=== PATIENT | male | born 1960 | race Caucasian/White ===

== ENCOUNTER 2018-12-14 19:27 | Emergency (ER) | payer MEDICARE ==
[2018-12-14 19:35] VITALS: BMI 25.0
[2018-12-14 19:44] VITALS: RESP 18; TEMP 97.9
[2018-12-14 20:17] LABS: ALB/GLOB RATIO 1.4 (1.1-1.8); ALT/SGPT 77 U/L (7-56); AST/SGOT 63 U/L (17-59); BLOOD UREA NITROGEN 14 mg/dL (7-21); CALCIUM 9.6 mg/dL (8.4-10.5); GFR NON-AFRICAN AMERICAN > 60
[2018-12-14 20:19] LABS: BASO # 0.03 K/mm3 (0.0-2.0); BASO % 0.3 % (0.0-3.0); EOS % 0.3 % (1.5-5.0); HEMOGLOBIN 14.1 g/dL (14.0-18.0); LYMPH # 6.7 (1.2-3.4); LYMPH % 56.3 % (22.0-35.0); MEAN CELL VOLUME 92.4 fl (80.0-105.0); MEAN CORPUSCULAR HEMOGLOBIN 31.4 pg (25.0-35.0); MONO # 0.7 (0.1-0.6); MONO % 6.2 % (1.0-6.0); PLATELET COUNT 99 10^3/uL (120.0-450.0); RBC 4.49 10^6/uL (3.5-6.1); RED CELL DISTRIBUTION WIDTH 13.4 % (11.5-14.5); WHITE BLOOD COUNT 11.9 10^3/uL (4.5-11.0)
[2018-12-14 20:27] LABS: TROPONIN I < 0.01 ng/mL
[2018-12-14 20:31] LABS: INR 1.11; PARTIAL THROMBOPLASTIN TIME 28.4 Seconds (26.9-38.3); PROTHROMBIN TIME 12.3 SECONDS (9.4-12.5)
--- NOTE | 2018-12-14 20:42 | ED PDOC ---
Arrival/HPI - General Chief Complaint: Syncope Time Seen by Provider: 12/14/18 19:35 Historian: Patient - History of Present Illness Narrative History of Present Illness (Text): 12/14/18 19:40 Donovan Greenwood is a 58 year old male, whose past medical history includes diabetes, who presents to the Emergency department complaining of a syncopal episode today. Patient states he had 1 alcoholic drink this evening and had a syncopal episode. Patient does not recall the event or remember how he fell. Patient sustained an abrasion to his left cheek. Patient denies any fever, chills, chest pain, shortness of breath, nausea, vomiting, diarrhea, urinary symptoms, back pain, neck pain, headache, dizziness, or any other complaints. Symptom Onset: Gradual Symptom Course: Unchanged Activities at Onset: Light Context: Home Past Medical History - Provider Review Nursing Documentation Reviewed: Yes - Cardiac Hx Cardiac Disorders: Yes (Patient Unable to remember during triage.) - Endocrine/Metabolic Hx Endocrine Disorders: Yes Hx Diabetes Mellitus Type 2: Yes - Psychiatric Hx Substance Use: No Family/Social History - Physician Review Nursing Documentation Reviewed: Yes Family/Social History: Unknown Family HX Smoking Status: Heavy Smoker > 10 Cigarettes Daily Hx Alcohol Use: Yes Frequency of alcohol use: Few days per week Hx Substance Use: No Allergies/Home Meds Allergies/Adverse Reactions: Allergies No Known Allergies Allergy (Verified 12/14/18 19:35) Review of Systems - Physician Review All systems were reviewed & negative as marked: Yes - Review of Systems Constitutional: Normal. absent: Fevers Eyes: Normal ENT: Normal Respiratory: Normal Cardiovascular: Syncope Gastrointestinal: Normal. absent: Abdominal Pain, Diarrhea, Nausea, Vomiting Genitourinary Male: Normal. absent: Dysuria, Frequency, Hematuria, Urinary Output Changes Musculoskeletal: Normal. absent: Back Pain, Neck Pain Skin: Normal. absent: Rash Neurological: Normal. absent: Headache, Dizziness Endocrine: Normal Hemo/Lymphatic: Normal Psychiatric: Normal Physical Exam Vital Signs Temp Pulse Resp BP Pulse Ox 12/14/18 19:35 97.9 F 84 18 141/85 98 Temperature: Afebrile Blood Pressure: Normal Pulse: Regular Respiratory Rate: Normal Appearance: Positive for: Well-Appearing, Non-Toxic, Comfortable Pain Distress: None Mental Status: Positive for: Alert and Oriented X 3 - Systems Exam Head: Present: Normocephalic, Abrasion (Abrasion to left cheek) Pupils: Present: PERRL Extroacular Muscles: Present: EOMI Conjunctiva: Present: Normal Mouth: Present: Moist Mucous Membranes Neck: Present: Normal Range of Motion Respiratory/Chest: Present: Clear to Auscultation, Good Air Exchange. No: Respiratory Distress, Accessory Muscle Use Cardiovascular: Present: Regular Rate and Rhythm, Normal S1, S2. No: Murmurs Abdomen: No: Tenderness, Distention, Peritoneal Signs Back: Present: Normal Inspection Upper Extremity: Present: Normal Inspection. No: Cyanosis, Edema Lower Extremity: Present: Normal Inspection. No: Edema Neurological: Present: GCS=15, CN II-XII Intact, Speech Normal Skin: Present: Warm, Dry, Normal Color. No: Rashes Psychiatric: Present: Alert, Oriented x 3, Normal Insight, Normal Concentration Medical Decision Making ED Course and Treatment: Impression: 58 year old male complaining of a syncopal episode. Pt sustained an abrasion to left cheek. Plan: -- CT Head w/o contrast -- CT Maxillofacial w/o contrast -- EKG -- Chest X-ray -- Labs, cardiac enzymes, TSH, alcohol level, D-dimer, blood cultures -- Urinalysis, urine drug screen, urine cultures -- Tylenol -- Reassess and disposition Prior Visits: Notes and results from previous visits were reviewed. Progress Notes: Reviewed EKG, NSR at [address]pm[address] Non-specific ST/T wave changes. 12/14/18 22:05 Reviewed radiology, Chest X-ray shows no acute processes. CT Head: BRAIN No acute intraparenchymal hemorrhage. No mass lesion. No CT evidence for acute territorial infarct. No midline shift or extra-axial collections. A large zone of decreased attenuation is seen in the left temporal lobe thought compatible with post ischemic infarction encephalomalacia. An old lacunar infarction is seen in the anterior left periventricular white matter tracts. VENTRICLES: There is slight asymmetrical hypertrophy of the left lateral ventricle for the left temporal cortical atrophy. VASCULAR: Atherosclerotic vascular plaquing is noted within the left carotid siphon. ORBITS: The orbits are unremarkable. SINUSES AND MASTOIDS: The paranasal sinuses and mastoid air cells are clear. BONES: No fracture. SOFT TISSUES: Unremarkable. IMPRESSION: 1. No acute intracranial abnormality. 2. 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 3. Compensatory hypertrophy of the left lateral ventricle. 4. Old lacunar infarction in the anterior left periventricular white matter tracts. 5. Atherosclerotic vascular plaquing within the left carotid siphon. Electronically signed on Dec 14, 2018 9:57:50 PM EST by: Robert Phillips M.D., LILI Certified By ABR & [facility] Fellowship Trained MRI and CT Specialist 12/14/18 22:18:03 CT Maxillofacial: BONES: No acute fracture or aggressive appearing osseous lesion. The mandible is intact. SOFT TISSUES: The soft tissues are unremarkable. SINUSES: Bilateral ethmoid and maxillary acute on chronic sinusitis is seen ORBITS: The orbits are normal. No retrobulbar hematoma or mass. IMPRESSION: Sinusitis. Unremarkable maxillofacial CT otherwise. Electronically signed on Dec 14, 2018 10:16:00 PM EST by: Robert Phillips M.D., LILI Certified By ABR & [facility] Fellowship Trained MRI and CT Specialist 12/15/18 02:00 CT Maxillofacial images sent for reinterpretation, addendum shows: Coronal and sagittal recons were performed and show a minimally displaced comminuted fracture involving superior wall of the left orbit. Addendum electronically signed by Robert Phillips M.D., LILI Certified By ABR & CBC[employer] on December 15, 2018 1:58:44 AM EST 12/15/18 03:05 Pt awake, alert, clinically sober. Discussed CT scan findings with pt, pt was offered admission to the hospital for further evaluation. Pt adamantly refusing stay and wishes to go home. Pt was strongly advised on the risks of leaving against medical advice, which includes but is not limited to: vision loss, organ failure, or . Pt continues to refuse to stay. Pt will sign out against medical advice. Discharge instructions and referrals for follow-up with ENT and opthamology were given and strongly encouraged. Pt verbalizes understanding. The patient declines admission, and wishes to leave the Emergency Department. This action is against my medical advice to the patient and the decision was made with informed refusal. The patient was told that admission is necessary and a full explanation of the rationale was given. The risks of leaving were explained to the patient and include, but are not limited to, worsening of known or currently unknown conditions, permanent disability and from undiagnosed or untreated conditions The patient has the capacity to make this informed decision and understands the clinical situation and my explanation of the risks of leaving. The patient voluntarily accepts these risks, and a signed AMA form documenting our conversation was obtained. The patient was given the opportunity to ask questions and reconsider. The patient was encouraged to return to the Emergency Department at any time for further care. - Lab Interpretations Lab Results: PT 12.3 SECONDS (9.4-12.5) 12/14/18 19:48 INR 1.11 12/14/18 19:48 APTT 28.4 Seconds (26.9-38.3) 12/14/18 19:48 D-Dimer, Quantitative 1120 ng/mlDDU (0-243) H 12/14/18 19:48 Troponin I < 0.01 ng/mL 12/14/18 19:48 Total Bilirubin 0.4 mg/dL (0.2-1.3) 12/14/18 19:48 AST 63 U/L (17-59) H 12/14/18 19:48 ALT 77 U/L (7-56) H 12/14/18 19:48 Alkaline Phosphatase 116 U/L (38-126) 12/14/18 19:48 Total Protein 8.6 g/dL (5.8-8.3) H 12/14/18 19:48 Albumin 5.0 g/dL (3.0-4.8) H 12/14/18 19:48 Globulin 3.6 gm/dL 12/14/18 19:48 Albumin/Globulin Ratio 1.4 (1.1-1.8) 12/14/18 19:48 I have reviewed the lab results: Yes - RAD Interpretation Radiology Orders: 12/14/18 19:44 HEAD W/O CONTRAST [CT] Stat 12/14/18 19:46 MAXILLOFACIAL W/O CONTRAST [CT] Stat 12/14/18 19:47 CHEST ONE VIEW [RAD] Stat Cmo & President: ED Physician, Radiologist - EKG Interpretation Interpreted by ED Physician: Yes Type: 12 lead EKG - Scribe Statement The provider has reviewed the documentation as recorded by the Clarisseibkhalida Hinton Provider Scribe Attestation: All medical record entries made by the Scribe were at my direction and personally dictated by me. I have reviewed the chart and agree that the record accurately reflects my personal performance of the history, physical exam, medical decision making, and the department course for this patient. I have also personally directed, reviewed, and agree with the discharge instructions and disposition. Disposition/Present on Arrival - Present on Arrival Any Indicators Present on Arrival: No History of DVT/PE: No History of Uncontrolled Diabetes: No Urinary Catheter: No History of Decub. Ulcer: No History Surgical Site Infection Following: None - Disposition Have Diagnosis and Disposition been Completed?: Yes Diagnosis: Orbit fracture, left, Syncope Disposition: AGAINST MEDICAL ADVICE Disposition Time: 03:00 Condition: UNKNOWN Discharge Instructions (ExitCare): Skull and Facial Fractures, Syncope (ED) Additional Instructions: follow up with dr munoz ent and dr díaz eye doctor you can lose your vision I AM SIGNING OUT AMA Prescriptions: Amoxicillin 875 mg PO BID #20 tab Referrals: Rodolfo Díaz [Staff Provider] - Follow up with primary Daniel Munoz DO [[facility]] - Follow up with primary Forms: [employer] (Kyrgyz)
[2018-12-14 20:54] LABS: URINE BILIRUBIN NEGATIVE (NEGATIVE); URINE BLOOD NEGATIVE (NEGATIVE); URINE GLUCOSE (UA) 250 mg/dL (NEGATIVE); URINE LEUKOCYTE ESTERASE NEGATIVE Leu/uL (NEGATIVE); URINE PROTEIN NEGATIVE mg/dL (<30 mg/dL); URINE UROBILINOGEN 0.2 E.U./dL (<1 E.U./dL)
[2018-12-14 21:17] LABS: URINE APPEARANCE CLEAR (CLEAR); URINE COLOR YELLOW (YELLOW)
[2018-12-14 21:52] LABS: BARBITURATES, UR NEGATIVE (NEGATIVE); BENZODIAZEPINES, UR NEGATIVE (NEGATIVE); OPIATES, UR NEGATIVE (NEGATIVE); PHENCYCLIDINE, UR NEGATIVE (NEGATIVE)
[2018-12-15 03:48] VITALS: BP 128/74; PULSE 82; O2SAT 99
--- NOTE | 2018-12-15 08:30 | CT ---
Date of service: 12/14/2018 PROCEDURE: CT HEAD WITHOUT CONTRAST. HISTORY: syncope COMPARISON: None available. TECHNIQUE: Axial computed tomography images were obtained through the head/brain without intravenous contrast. Radiation dose: Total exam DLP = 734.72 mGy-cm. This CT exam was performed using one or more of the following dose reduction techniques: Automated exposure control, adjustment of the mA and/or kV according to patient size, and/or use of iterative reconstruction technique. FINDINGS: HEMORRHAGE: No intracranial hemorrhage. BRAIN: No mass effect or edema. There is severe cystic encephalomalacia in the left temporal lobe with dilatation of the left temporal horn and enlargement of the left lateral ventricle. There is also cystic encephalomalacia involving the insular cortex on the left. VENTRICLES: Unremarkable. No hydrocephalus. CALVARIUM: Unremarkable. PARANASAL SINUSES: Unremarkable as visualized. No significant inflammatory changes. MASTOID AIR CELLS: Unremarkable as visualized. No inflammatory changes. OTHER FINDINGS: The report concurs with the preliminary [facility] report IMPRESSION: There is severe cystic encephalomalacia in the left temporal lobe with dilatation of the left temporal horn and enlargement of the left lateral ventricle. There is also cystic encephalomalacia involving the insular cortex on the left. No acute intracranial abnormalities
--- NOTE | 2018-12-15 08:49 | CT ---
Date of service: 12/14/2018 PROCEDURE: CT MAXILLOFACIAL BONES WITHOUT CONTRAST HISTORY: syncope COMPARISON: None available. TECHNIQUE: Contiguous axial CT images of the maxillofacial bones were obtained. Coronal and sagittal reformats were generated. Radiation dose: Total exam DLP = 783.5 mGy-cm. This CT exam was performed using one or more of the following dose reduction techniques: Automated exposure control, adjustment of the mA and/or kV according to patient size, and/or use of iterative reconstruction technique. FINDINGS: NASAL BONES: Unremarkable. ORBITS: There is a displaced comminuted fracture of the roof of the left orbit. This is seen best on coronal image 46. This extends through the left frontal bone as seen on axial image 114 series 2. The fracture does not extend through the frontal sinus. PARANASAL SINUSES/ MASTOIDS: There is fluid in the left maxillary sinus. MAXILLA: There is a nondisplaced fracture of the anterior wall of the maxillary sinus. This fracture extends into the lacrimal duct. This finding is seen on image 80 of series 2 MANDIBLE/ TEMPOROMANDIBULAR JOINTS: Unremarkable. SKULL BASE: Unremarkable. TEMPORAL BONES: Middle ears and mastoid grossly unremarkable. OTHER FINDINGS: There is a discrepancy with the [place] [facility] report which did not identify the fractures. I discussed this discrepancy with Dr. Daley at 8:30 a.m. 12/15/2018 IMPRESSION: Fracture of the roof of the left orbit and fracture through the left frontal bone. Nondisplaced fracture through the left maxillary sinus anterior wall and lacrimal duct.
--- NOTE | 2018-12-15 09:06 | RAD ---
Date of service: 12/14/2018 PROCEDURE: CHEST RADIOGRAPH, 1 VIEW HISTORY: pain COMPARISON: 09/04/2013 FINDINGS: LUNGS: Clear. PLEURA: No pneumothorax or pleural fluid seen. CARDIOVASCULAR: No aortic atherosclerotic calcification present. Normal. OSSEOUS STRUCTURES: No significant abnormalities. VISUALIZED UPPER ABDOMEN: Normal. OTHER FINDINGS: None. IMPRESSION: No active disease.
--- NOTE | 2018-12-15 09:19 | CARD ---
APPROVED REPORT Date of service: 12/14/2018 EKG Measurement Heart [id number] <Conclusion> Normal sinus rhythm Poor RR prpogression Abnormal ECG
== END 2018-12-15 03:10 | disposition left against medical advice (07) ==
LOC: ED 19:27
DX: R55 Syncope and collapse (principal); S02.19XA Other fracture of base of skull, initial encounter for closed fracture; X58.XXXA Exposure to other specified factors, initial encounter